=== PATIENT | female | born 1975 | race Caucasian/White ===

== ENCOUNTER → 2016-05-21 | Outpatient (CLI) | payer OTHER ==
[2016-05-21] VITALS (11 sets, daily range): BP systolic 105–124; BP diastolic 63–84
[~2016-05-21] VITALS: Ht 165.1 cm; Wt 70.3 kg
[~2016-05-21] MED LIST: Bupivacaine 0.5% Inj 30 ml vial INJ ONE; Dexamethasone Inj PF*Surgery use* 10 MG/ML VIAL IV ONE; Kenalog-40 5ml vial ONE; LISINOPRIL10 MG ORAL; LR 1000ml 1,000 ML IV SCH; LR 1000ml ONE; Lidocaine 1% Plain 30 ml INJ ONE; Midazolam 2mg/2ml Inj ONE; fentaNYL 100 mcg/2 mL IV ONE
--- NOTE | 2016-05-21 07:52 | Short Stay Surgery H&P ---
History of Present Illness History of Present Illness Chief Complaint low back pain exacerbated after trying to help a patient who was falling. she also has left sided lower/mid back pain. No radicular symptoms. HPI Pia Boles is a 40 year old female who was admitted on for Spondyls W/O Myelo/Radiculopathy Lumbar Patient History Allergies: Coded Allergies: No Known Allergies (Unverified , 05/21/16) latex PAST MEDICAL HISTORY: Past Surgeries: Social History: Medication History Scheduled Lisinopril* (Lisinopril*), 10 MG ORAL DAILY, (Reported) Review of Systems Cardiovascular: Denies: CABG, CAD - stable, CHF, OH, angina, dysrhythmia, hypertension, no symptoms, other, peripheral vascular disease, rheumatic heart disease, see HPI, source of infx - skin, source of infx-indw cath, source of infx-prosthesis, valvular disease Respiratory: Denies: COPD, CPAP, URI, asthma, chronic bronchitis, home 02, no symptoms, other, pneumonia, see HPI, sleep apnea, tuberculosis Skeletal: Reports: other Gastrointestinal: Denies: gastro esophageal reflux disease, hepatitis A,B,C, hiatal hernia, jaundice, no symptoms, obesity, other, peptic ulcer disease, see HPI Genitourinary: Denies: BPH, UTI, dialysis, endstage renal disease, no symptoms , other, renal insufficiency, see HPI, urinary retention Neurologic: Denies: neuro muscular disease, neuropathy, no symptoms, other, see HPI, seizure, stroke/TIA Physical Exam Vital Signs Last Vital Signs Date Time Temp Pulse Resp B/P Pulse Ox O2 Delivery O2 Flow Rate FiO2 05/21/16 06:51 98.7 77 18 119/84 98 Room Air Labs Laboratory Tests Test 05/21/16 06:20 Urine HCG, Qualitative Negative Skin: normal HENT: normal Heart: normal Lungs: normal Abdomen: normal Extremities: normal Genitourinary: normal Plan Plan of Care Lumbar diagnostic facet medial branch blocks and trigger point injections Final Diagnosis: Attestation Are the patient's medical conditions optimized for surgery? Attestation Response: yes AL AMADOR M.D. May 21, 2016 07:52
--- NOTE | 2016-05-21 07:53 | Pre-Procedure Note/Attestation ---
Pre-Procedure Note/Attestation Complete Prior to Procedure Planned Procedure: bilateral Procedure Narrative: Lumbar facet diagnostic medial branch blocks and trigger point injections Indications for Procedure Pre-Operative Diagnosis: 1) Lumbar spondylosis without radiculopathy or myelopath 2) myalgia Attestation I attest that I discussed the nature of the procedure; its benefits; risks and complications; and alternatives (and the risks and benefits of such alternatives ), prior to the procedure, with the patient (or the patient's legal insurance account representative). I attest that, if there was a reasonable possibility of needing a blood transfusion, the patient (or the patient's legal insurance account representative) was given the [place] [employer] standardized written summary, pursuant to the [place] Blood Safety Act ([place] Health and Safety Code # 1645, as amended). I attest that I re-evaluated the patient just prior to the surgery and that there has been no change in the patient's H&P, except as documented below: AL AMADOR M.D. May 21, 2016 07:53
--- NOTE | 2016-05-21 07:57 | Brief Operative Note ---
Immediate Post Operative Note Operative Note Pre-op Diagnosis: 1) Lumbar spondylosis without radiculopathy or myelopath 2) myalgia Procedure: Lumbar facet medial branch blocks and trigger point injections Post-op Diagnosis: same as pre-op Findings: consistent w/pre-op dx studies Surgeon: Al Black MD Anesthesia: MAC, moderate sedation Specimen: none Complications: none Condition: stable Estimated Blood Loss: none Drains: none Implant(s) used?: No AL BLACK M.D. May 21, 2016 07:57
--- NOTE | 2016-05-21 10:54 | Anethesia Preoperative Eval ---
Anesthesia Pre-op PMH/ROS General Date of Evaluation: May 21, 2016 Time of Evaluation: 08:35 Anesthesiologist: jonathan ASA Score: ASA 3 Mallampati Score Class I : Soft palate, uvula, fauces, pillars visible Class II: Soft palate, uvula, fauces visible Class III: Soft palate, base of uvula visible Class IV: Only hard plate visible Mallampati Classification: Class II Surgeon: shiloh Diagnosis: lumbar fcet arthropathy & myalgia Surgical Procedure: lumbar facet block & hardware block Anesthesia History: none Allergies: Coded Allergies: LATEX (Verified Allergy, Unknown, Hives, 05/21/16) Past Medical History Cardiovascular: Reports: HTN Hematology/Immune: Reports: other - Etienne Roche Anesthesia Pre-op Phys. Exam Physician Exam Last Vital Signs Date Time Temp Pulse Resp B/P Pulse Ox O2 Delivery O2 Flow Rate FiO2 05/21/16 10:19 97.2 73 18 111/71 96 Room Air 05/21/16 08:34 2.0 Airway Exam Mallampati Score: Class II Teeth: intact Anesthesia Pre-op A/P Labs Urine Test Test 05/21/16 06:20 Urine HCG, Qualitative Negative Risk Assessment & Plan Plan: versed Status Change Before Surgery: Ziyad Bernabe MD May 21, 2016 10:54
--- NOTE | 2016-05-21 11:00 | Immediate Post-Op Evaluation ---
Immediate Post-Op Evalulation Immediate Post-Op Evalulation Date of Evaluation: May 21, 2016 Time of Evaluation: 09:05 IV Fluids: 300 Blood Pressure Systolic: 105 Blood Pressure Diastolic: 63 Pulse Rate: 68 Respiratory Rate: 16 O2 Sat by Pulse Oximetry: 100 Temperature (Fahrenheit): 98.1 Pain Score (1-10): 0 Nausea: No Vomiting: No Complications none Patient Status: awake, patent, none Hydration Status: adequate Ziyad Medina MD May 21, 2016 11:00
--- NOTE | 2016-05-21 11:03 | 48 Hour Post Anesthesia Eval ---
Post Anesthesia Evaluation Date of Evaluation: May 21, 2016 Time of Evaluation: 09:55 Blood Pressure Systolic: 107 0: 64 Pulse Rate: 65 Respiratory Rate: 16 Temperature (Fahrenheit): 98 O2 Sat by Pulse Oximetry: 98 Airway: patent Nausea: No Vomiting: No Pain Intensity: 0 Hydration Status: adequate Cardiopulmonary Status: stable Mental Status/LOC: patient returned to baseline Follow-up Care/Observations: n/a Post-Anesthesia Complications: tolerated well Follow-up care needed: ready to discharge Ziyad Medina MD May 21, 2016 11:03
== END | disposition home or self-care (01) ==
LOC: RAD 06:15
DX: M47.816 Spondylosis without myelopathy or radiculopathy, lumbar region (principal); M79.1 Myalgia; M43.26 Fusion of spine, lumbar region
CPT/HCPCS: 64483; 64484; 77003; 81025; J2001; J2250; J3490; J7120; Q9967